=== PATIENT | male | born 1940 | race Caucasian/White ===

== ENCOUNTER 2019-02-22 11:14 | Observation (INO) | payer MEDICARE, BC ==
[2019-02-22] MEDS ORDERED: Dextrose 50% Abboject 50 ML SYRINGE SLOW IVP PRN (18:55)
[2019-02-22] MEDS ORDERED: Loratadine 10 MG TAB PO PRN (18:55)
[2019-02-22] MEDS ORDERED: Phytonadione 10 MG/ML AMP PO SCH (18:55)
[2019-02-22] MEDS ORDERED: Docusate 100 MG CAP PO PRN (18:55)
[2019-02-22] MEDS ORDERED: HumaLOG 300 UNITS/3 ML VIAL SC PRN ×2 (18:55)
[2019-02-22] MEDS ORDERED: Ondansetron PF 4 MG/2 ML Vial IVP PRN (18:55)
[2019-02-22] MEDS ORDERED: Acetaminophen 500 MG TAB PO PRN (18:55)
[2019-02-22] MEDS ORDERED: Fluticasone Propionate Nasal Spray 16 gm Bottle NASAL PRN (18:55)
[2019-02-22] MEDS ORDERED: Dextrose 5% in Water 1,000 ML IV PRN (18:55)
[2019-02-22] MEDS ORDERED: Ondansetron ODT 4 MG TAB SL PRN (18:55)
--- NOTE | 2019-02-22 19:42 | RAD ---
PORTABLE AP CHEST X-RAY 02/22/19 HISTORY: Heart failure. COMPARISON: 11/19/18. FINDINGS: A triple lead left subclavian AICD device remains in place. The cardiac silhouette remains enlarged. There is evidence of pleural and parenchymal changes right lung base, likely related to small right and tiny left pleural effusions with associated atelectasis. There are linear densities present at th e right lung also probably present on the prior study which may be related to mild scarring. Pulmonar y vasculature is at the upper limits of normal but not significantly changed from prior exam. IMPRESSION: 1. Cardiomegaly without overt CHF. 2. Small bilateral pleural effusion and associated atelectasis. Probable additional mild scarrin g at the right lung base. POS: PRADEEPC
[2019-02-22] MEDS ORDERED: Cephalexin 250 MG CAP PO SCH (21:00)
[2019-02-22] MEDS: Alogliptin 6.25 MG TAB PO SCH (21:54)
[2019-02-22] MEDS: Metolazone 5 MG TAB PO SCH (21:55)
[2019-02-22] MEDS: Famotidine 20 MG TAB PO SCH (21:55)
[2019-02-22] MEDS: Carvedilol 6.25 MG TAB PO SCH (21:55)
--- NOTE | 2019-02-22 22:42 | HP ---
PRIMARY CARE PROVIDER: Alejo Turcios MD. PRIMARY REHAB TECH: Ryanne Rodriguez MD. CHIEF COMPLAINT: Increased abdominal girth. HISTORY OF PRESENT ILLNESS: This is a 78-year-old male who presented to [facility] after referral from Dr. Rodriguez's office for increasing abdominal girth and ascites. The patient with a long-standing history of cardiomyopathy and congestive heart failure with history of prior ascites requiring paracentesis and removal of approximately 6 L of transudative fluid in [place], [place], October 2018. The patient states his weight had increased to 240 pounds, decreasing to 194 pounds prior to discharge in October 2018. The patient has been followed locally after relocating to the [facility] and following up with Dr. Rodriguez at the [facility]. The patient also has been followed at the [facility] and is monitored closely due to chronic Coumadin use as well as congestive heart failure and severe cardiomyopathy. The patient is unsure of increased weight gain, but states he has some swelling of his lower extremities, but mainly noticeable with increasing abdominal girth. The patient has been compliant with his medication regimen and had an increase to his diuretic regimen recommended by the CHF clinic. The patient states this does not appear to be successful in managing his abdominal fluid at which point he was referred to the hospitalist service for consideration of paracentesis. The patient denied any specific increased shortness of breath, but overall general fatigue. No documented fever, chills, exposure history, or recent travel. PAST MEDICAL HISTORY: 1. Idiopathic-dilated cardiomyopathy status post AICD placement. 2. Chronic systolic congestive heart failure. 3. Chronic atrial fibrillation. 4. Chronic anticoagulation with Coumadin x10 years. 5. Abdominal ascites status post paracentesis. 6. Chronic kidney disease stage 3. 7. Diabetes mellitus type 2. PAST SURGICAL HISTORY: 1. Status post cardiac radiofrequency ablation. 2. Status post external cardiac defibrillator. 3. Status post AICD placement. CURRENT MEDICATIONS: 1. Carvedilol 6.25 mg p.o. b.i.d. 2. Keflex 500 mg p.o. t.i.d. 3. Digoxin 125 mcg p.o. on Tuesday, Tuesday, and Tuesday. 4. Docusate sodium 100 mg p.o. daily p.r.n. 5. Ferrous sulfate 325 mg p.o. daily. 6. Proscar 5 mg p.o. daily. 7. Flonase 2 sprays in each naris daily. 8. Tradjenta 5 mg p.o. at bedtime. 9. Claritin 10 mg p.o. daily. 10. Magnesium oxide 200 mg p.o. daily. 11. Zaroxolyn 5 mg p.o. b.i.d. 12. Multivitamin 1 tablet p.o. daily. 13. Potassium chloride 40 mEq p.o. b.i.d. 14. Spironolactone 25 mg p.o. b.i.d. 15. Torsemide 40 mg p.o. b.i.d.. 16. Coumadin 5 mg on Tuesday, Tuesday, and Tuesday; and 7.5 mg on Tuesday, , Tuesday, and Tuesday. ALLERGIES: NO KNOWN DRUG ALLERGIES. FAMILY HISTORY: No inheritable disease per the patient report. SOCIAL HISTORY: The patient is , accompanied by his in the hospital. Retired, relocating to the [facility] after living in [place] for 30+ years. No current alcohol, tobacco, or illicit drug use. REVIEW OF SYSTEMS: CONSTITUTIONAL: Negative for weight loss or gain, ability to conduct usual activities. SKIN: Negative for rash, itching. EYES: Negative for double vision, pain. ENT/MOUTH: Negative for nose bleeding, neck stiffness, pain, tenderness. CARDIOVASCULAR: Negative for palpitations, dyspnea on exertion, orthopnea. RESPIRATORY: Negative for shortness of breath, wheezing, cough, hemoptysis, fever or night sweats. GASTROINTESTINAL: Negative for poor appetite, abdominal pain, heartburn, nausea, vomiting, constipation, or diarrhea. GENITOURINARY: Negative for urgency, frequency, dysuria, nocturia. MUSCULOSKELETAL: Negative for pain, swelling. NEUROLOGIC/PSYCHIATRIC: Negative for anxiety, depression. ALLERGY/IMMUNOLOGIC: Negative for skin rash, bleeding tendency. Otherwise negative except as stated per HPI. PHYSICAL EXAMINATION: VITAL SIGNS: Currently, blood pressure 96/56, pulse 71, respiratory rate 18, temperature 96.9 degrees Fahrenheit, O2 saturation 97% on room air. GENERAL APPEARANCE: This is a 78-year-old male, alert and oriented x3, pleasant, conversant, in no acute distress. HEENT: Pupils are equal, round, reactive to light and accommodation. Extraocular muscles are intact. No scleral icterus. No conjunctival injection. Nares are patent. OP is clear. Teeth in fair repair. NECK: Supple. No cervical adenopathy. No thyromegaly. No carotid bruits. No JVD appreciated. Cervical spine with full active and passive range of motion. No meningeal signs noted. CHEST: Lungs are clear to auscultation bilaterally with mild decrease in the bases. CARDIOVASCULAR: S1, S2 without noted murmur, rub, or gallop. ABDOMEN: Protuberant with abdominal fluid wave noted. Positive ascites. No palpable mass or tenderness noted. Bowel sounds are positive in all 4 quadrants. EXTREMITIES: Warm and dry with fair turgor. Mild edema to the proximal shins bilaterally. CARMEN hose compression stockings in place. Pulses are palpable distally at the dorsalis pedis, posterior tibial, and popliteal arteries bilaterally. Capillary refill less than 2 seconds. NEUROLOGIC: Cranial nerves 2 through 12 are grossly intact. No focal or lateralizing signs appreciated. Telemetry monitoring shows a ventricular paced rhythm in the 70s. LABORATORY DATA: Sodium 133, potassium 4.3, chloride 90, CO2 of 31, BUN 102, creatinine 2.18, estimated GFR of 30, glucose 94, calcium 9.9, total bilirubin level 1.9, AST 20, ALT of 13, alkaline phosphatase 152. BNP 2385; previously 3130, 11/19/2018. Albumin 4.0, PT 33, INR 3.3. CBC showed a white blood cell count of 5.7, hemoglobin 12, hematocrit 37, platelet count 136 with 71% neutrophils. ASSESSMENT AND PLAN: 1. Abdominal ascites. The patient will be admitted to the telemetry unit. Suspect secondary to chronic systolic congestive heart failure. We will obtain abdominal ultrasound with ultrasound-guided paracentesis. Lasix 20 mg IV b.i.d. Fluid restriction to 1.5 L per 24 hours. 2. Cardiomyopathy. Secondary to idiopathic-dilated cardiomyopathy. We will continue general supportive management. Continue digoxin 125 mcg Tuesday, Tuesday, and Tuesday. 3. Chronic anticoagulation with Coumadin. Hold current Coumadin. Vitamin K 5 mg p.o. x1 now. Continue holding anticoagulation in preparation for paracentesis. Repeat PT/INR in the a.m. 4. Chronic kidney disease stage 3. Avoid nephrotoxic agents and limit contrast exposure. Repeat creatinine in the a.m. 5. Chronic systolic congestive heart failure. No specific evidence of acute exacerbation. Resume home regimen including digoxin and Coreg. Check 2D transthoracic echocardiogram in the a.m. 6. Prophylaxis. CARMEN hose compression stockings. Pepcid 20 mg p.o. b.i.d. 7. Code status is full. Surrogate medical decision maker is the patient's spouse. Job ID: [id number]
[2019-02-23 04:51] LABS: INR-International Normal Ratio 2.4; Prothrombin Time 26.2 SEC (12.0-14.7)
[2019-02-23 05:13] LABS: ALT (SGPT) 11 U/L (8-55); AST (SGOT) 17 U/L (5-34); Albumin 3.8 g/dL (3.4-4.8); Alkaline Phosphatase 134 U/L (40-150); Anion Gap 18 mmol/L (10-20); BUN (Urea Nitrogen) 97 mg/dL (8.4-25.7); Bilirubin, Total 2.3 mg/dL (0.2-1.2); Calc. Creatinine Clearance 38 mL/min (70-130); Carbon Dioxide 28 mmol/L (23-31); Chloride 90 mmol/L (98-107); Estimated GFR-MDRD 32; Globulin 3.3 g/dL (2.4-3.5); Glucose 94 mg/dL (83-110); Potassium 3.7 mmol/L (3.5-5.1); Protein, Total 7.1 g/dL (5.8-8.1); Sodium 132 mmol/L (136-145)
[2019-02-23 05:18] LABS: Band 5 % (5-11); Eosinophils 1 % (0-10); Hemoglobin 12.2 g/dL (14.0-18.0); Lymphocytes 20 % (21-51); MDiff Complete? YES; Mean Corpuscular HGB CONC 33.9 g/dL (32.0-36.0); Mean Corpuscular Hemoglobin 31.8 pg (27.0-31.0); Mean Corpuscular Volume 93.8 fL (78.0-98.0); Mean Platelet Volume 9.1 fL (7.4-10.4); Monocytes 7 % (0-10); Neutrophil 66 % (42-75); Platelet Count 135 thou/uL (130-400); Red Blood Cell (RBC) Count 3.84 mill/uL (4.70-6.10)
[2019-02-23] MEDS ORDERED: Carvedilol 6.25 MG TAB PO SCH (08:00)
[2019-02-23] MEDS ORDERED: Potassium Chloride 20 MEQ TAB PO SCH (08:00)
--- NOTE | 2019-02-23 08:42 | ULT ---
Sonogram abdomen limited HISTORY: Abdominal pain. Ascites. FINDINGS: Exam was originally scheduled as a sonographic guided paracentesis. Sonographic survey show s small amount of free fluid. Estimated at 1 L. The patient's INR is elevated due to therapeutic Coumadin. Given the small amount of fluid and that t emporarily holding the Coumadin would be required for the procedure, it would probably be better to not perform the paracentesis, as it would be of limited therapeutic value. The findings and plan were with Dr. Cullen at the time of the exam.
[2019-02-23] MEDS ORDERED: Digoxin 0.125 MG TAB PO SCH (09:00)
[2019-02-23] MEDS: Metolazone 5 MG TAB PO SCH ×2 (09:02→20:48)
[2019-02-23] MEDS: Magnesium Oxide 400 MG TAB PO SCH (09:02)
[2019-02-23] MEDS: Carvedilol 6.25 MG TAB PO SCH ×2 (09:03→21:04)
[2019-02-23] MEDS: Spironolactone 25 MG TAB PO SCH ×2 (09:03→16:19)
[2019-02-23] MEDS: Multivitamin W/ Minerals 1 TAB PO SCH (09:03)
[2019-02-23] MEDS: Ferrous Sulfate 325 MG TAB PO SCH (09:03)
[2019-02-23] MEDS: Potassium Chloride 20 MEQ TAB PO SCH ×2 (09:03→16:20)
[2019-02-23] MEDS: Finasteride 5 MG TAB PO SCH (09:03)
[2019-02-23 09:30] LABS: Iron 83 ug/dL (65-175); Iron Binding Capacity, Total 359 mcg/dL (261-462)
--- NOTE | 2019-02-23 11:20 | PRG ---
DATE OF SERVICE: 02/23/2019 SUBJECTIVE: Mr. Monroe is breathing okay. No complaints. OBJECTIVE: VITAL SIGNS: His blood pressure is somewhat better 90/54, pulse 70. LUNGS: Clear. CARDIAC: Mitral regurgitation murmur is soft. ABDOMEN: Soft, nontender. EXTREMITIES: Moderate edema. PERTINENT LABORATORY DATA: Creatinine is 2.05. The INR is 2.4. ASSESSMENT: 1. Idiopathic cardiomyopathy, appears to be nearing the end stages. 2. Renal failure. 3. Hepatic congestion. 4. Only has a small amount of ascites. PLAN: 1. Echocardiogram is pending, probably not a lot more can be done to optimize the situation. 2. Stop digoxin. 3. At some point, I will try to get hold of his primary emu farm worker in [place], Dr. Johnson. Unfortunately, the family seems to think that his prognosis is better than what I believed to be. Job ID: [id number]
--- NOTE | 2019-02-23 12:43 | PDOC.HOSPP ---
- Subjective Subjective: f/u for Idiopathic CM and small amount of ascites. No indication per abd sono to perform paracentesis. No new complaints currently. - Objective Vital Signs & Weight: Vital Signs (12 hours) Temp Pulse Pulse Pulse Resp BP BP 02/23/19 11:11 72 86 90/59 L 91/52 L 02/23/19 08:00 97.5 F L 71 18 02/23/19 04:00 98.2 F 72 15 BP BP Pulse Ox Pulse Ox Pulse Ox 02/23/19 11:11 97 96 02/23/19 08:00 99/59 L 95 02/23/19 04:00 91/54 L 94 L Weight Weight 193 lb 12.8 oz I&O: 02/22/19 02/23/19 02/24/19 06:59 06:59 06:59 Intake Total 1111 Output Total 1999 Balance -889 Result Diagrams: 02/23/19 04:06 02/23/19 04:06 Additional Labs: Accuchecks 02/23/19 02/23/19 02/22/19 11:15 05:32 20:41 POC Glucose 99 103 140 H 02/22/19 16:40 POC Glucose 94 Laboratory Tests 02/21/19 02/21/19 02/23/19 10:40 10:40 04:06 INR 3.3 2.4 BUN 102 H Creatinine 2.18 H Radiology Reviewed by me: Yes (ABD sono - small amount of ascites) EKG Reviewed by me: Yes (Tele - V-pacing, PVC's) ROS - Review of Systems All systems: All other ROS were reviewed and found negative. - Medication Medications: Active Medications Generic Name Dose Route Start Last Admin Trade Name Freq PRN Reason Stop Dose Admin Acetaminophen 1,000 mg 02/22/19 18:55 02/23/19 09:06 Tylenol PO 1,000 mg Q6H PRN Administration Mild Pain (1-3) Alogliptin Benzoate 12.5 mg 02/22/19 21:00 02/22/19 21:54 Alogliptin PO 12.5 mg HS ROSA Administration Carvedilol 6.25 mg 02/22/19 21:00 02/23/19 09:03 Coreg PO 6.25 mg BID ROSA Administration Famotidine 20 mg 02/22/19 21:00 02/22/19 21:55 Pepcid PO 20 mg Q24HR ROSA Administration Ferrous Sulfate 325 mg 02/23/19 08:00 02/23/19 09:03 Feosol PO 325 mg QAM-WM ROSA Administration Finasteride 5 mg 02/23/19 09:00 02/23/19 09:03 Proscar PO 5 mg DAILY ROSA Administration Iron/Minerals/Multivitamins 1 tab 02/23/19 09:00 02/23/19 09:03 Theragran M PO 1 tab DAILY ROSA Administration Magnesium Oxide 200 mg 02/23/19 09:00 02/23/19 09:02 Magnesium Oxide PO 200 mg DAILY ROSA Administration Metolazone 5 mg 02/22/19 21:00 02/23/19 09:02 Zaroxolyn PO 5 mg BID ROSA Administration Potassium Chloride 20 meq 02/23/19 08:00 02/23/19 09:03 K-Dur PO 20 meq BID-WM ROSA Administration Sodium Chloride 10 ml 02/23/19 09:00 02/23/19 09:04 Flush - Normal Saline IVF 10 ml Q12HR ROSA Administration Spironolactone 25 mg 02/23/19 08:00 02/23/19 09:03 Aldactone PO 25 mg BID-WM ROSA Administration - Exam NAD, awake alert Eye: PERRL, anicteric sclera ENT: normocephalic atraumatic, no oropharyngeal lesions Neck: supple, symmetric, no JVD, no Thyromegaly Heart: RRR, no murmur, no gallops, no rubs Respiratory: CTAB, no wheezes, no rales, no ronchi (diminished in R base) Gastrointestinal: soft, non-tender, normal bowel sounds (mild fluid wave) Extremities: no cyanosis, no clubbing, 1+ LE edema Skin: normal turgor, no rashes Neurological: CN's grossly intact, no focal deficits Psychiatric: normal behavior, A&O x 3 Hosp A/P (1) Ascites Code(s): R18.8 - OTHER ASCITES Status: Chronic Qualifiers: Ascites type: other type Qualified Code(s): R18.8 - Other ascites Plan: Secondary to heart failure, chronic condition, small volume of ascites noted on Abd sono, no indication for paracentesis (2) Idiopathic cardiomyopathy Code(s): I42.8 - OTHER CARDIOMYOPATHIES Status: Chronic Plan: 2D echo pending, Digoxin d/c'd, continue Spironolactone, Zaroxolyn (3) Chronic anticoagulation Code(s): Z79.01 - DRUM LOADER AND UNLOADER (CURRENT) USE OF ANTICOAGULANTS Status: Chronic Plan: Resume Coumadin, serial PT/INR (4) Acute kidney injury superimposed on CKD Code(s): N17.9 - ACUTE KIDNEY FAILURE, UNSPECIFIED; N18.9 - CHRONIC KIDNEY DISEASE, UNSPECIFIED Status: Acute Plan: Avoid nephrotoxic meds and limit contrast exposure, serial creatinine (5) Chronic systolic CHF (congestive heart failure), NYHA class 3 Code(s): I50.22 - CHRONIC SYSTOLIC (CONGESTIVE) HEART FAILURE Status: Chronic Plan: No current evidence of decompensation, continue med mgmt, 2D echo pending - Plan plan discussed w/ family, social media assistant, out of bed/ambulate Stable currently Resume Coumadin today 2D echo pending Continue Coreg AM lab: BMP Likely home in 24h
[2019-02-23] MEDS ORDERED: Warfarin Sodium 5 MG TAB PO SCH ×2 (12:45→17:00)
[2019-02-23 13:50] VITALS: BMI 22.9
[2019-02-23] MEDS: Alogliptin 6.25 MG TAB PO SCH (20:48)
[2019-02-23] MEDS: Famotidine 20 MG TAB PO SCH (21:04)
[2019-02-24 05:32] LABS: INR-International Normal Ratio 1.9; Prothrombin Time 21.4 SEC (12.0-14.7)
[2019-02-24 05:57] LABS: Anion Gap 15 mmol/L (10-20); BUN (Urea Nitrogen) 86 mg/dL (8.4-25.7); Calc. Creatinine Clearance 45 mL/min (70-130); Carbon Dioxide 29 mmol/L (23-31); Chloride 94 mmol/L (98-107); Estimated GFR-MDRD 39; Glucose 111 mg/dL (83-110); Potassium 3.7 mmol/L (3.5-5.1); Sodium 134 mmol/L (136-145)
[2019-02-24] MEDS: Ferrous Sulfate 325 MG TAB PO SCH (09:30)
[2019-02-24] MEDS: Multivitamin W/ Minerals 1 TAB PO SCH (09:30)
[2019-02-24] MEDS: Spironolactone 25 MG TAB PO SCH (09:31)
[2019-02-24] MEDS: Metolazone 5 MG TAB PO SCH (09:31)
[2019-02-24] MEDS: Finasteride 5 MG TAB PO SCH (09:31)
[2019-02-24] MEDS: Potassium Chloride 20 MEQ TAB PO SCH (09:31)
[2019-02-24] MEDS: Carvedilol 6.25 MG TAB PO SCH (09:31)
[2019-02-24] MEDS: Magnesium Oxide 400 MG TAB PO SCH (09:31)
[2019-02-24 10:24] LABS: Hemoglobin 12.8 g/dL (14.0-18.0); Platelet Count 140 thou/uL (130-400)
--- NOTE | 2019-02-24 12:52 | PRG ---
DATE OF SERVICE: 02/24/2019 SUBJECTIVE: Mr. Monroe is breathing somewhat better. He is not having chest pain. He is not short of breath now. OBJECTIVE: VITAL SIGNS: Blood pressure is still low at 91/58 and pulse 70. LUNGS: Clear. CARDIAC: There is a 3/6 holosystolic murmur with mitral regurgitation. ABDOMEN: Soft and nontender. EXTREMITIES: There is moderate edema. Echocardiogram showed ejection fraction, 20% to 25%, there is severe mitral regurgitation. INR is 1.9. I had a long discussion with the patient and his about the poor long-term prognosis. I did speak with the patient's primary internet marketing intern, Dr. Johnson. He indicated that the patient could be potentially considered for transplantation or left ventricular assist device. The patient wishes to go back and speak with Dr. Johnson about these potential options. Another option could potentially be MitraClip. The patient does have severely depressed left ventricular function, would not be a surgical candidate. The patient will be released home. He mentioned that he wishes to speak further with Dr. Johnson. We have discharged him on the same medicines as on admission except we did take him off digoxin as the heart rate seems well controlled on the carvedilol alone and he is having some nonsustained ventricular tachycardia and reduced carvedilol to 6.25 twice a day in view of his hypotension, long-term prognosis, without further intervention is extremely poor. Job ID: [id number]
[2019-02-24 13:05] VITALS: BP 101/58; TEMP 97.2
[2019-02-24] MEDS ORDERED: Torsemide 20 MG TAB PO SCH (14:00)
[2019-02-24] MEDS ORDERED: Warfarin Sodium 7.5 MG TAB PO SCH (17:00)
--- NOTE | 2019-02-24 21:53 | DIS ---
DATE OF ADMISSION: 02/22/2019 DATE OF DISCHARGE: 02/24/2019 DISCHARGE DIAGNOSES: 1. Idiopathic cardiomyopathy with ejection fraction of 20% to 25%. 2. Ascites, small volume, stable. 3. Chronic anticoagulation with Coumadin. 4. Acute kidney injury on chronic kidney disease stage 3. 5. Chronic systolic congestive heart failure, [place] Heart Association class III. CONSULTATIONS: Dr. Rodriguez with Cardiology Service. PERTINENT LABORATORY AND X-RAY FINDINGS: Sodium ranged between 132 to 134. Creatinine ranged between 1.72 to 2.18. Estimated GFR ranged between 30 to 39. Serum iron level 83, TIBC 359, ferritin 273, total bilirubin 2.3, AST 17, ALT 11, alkaline phosphatase 134. CBC showed a hemoglobin ranged between 12.2 to 12.8. INR ranged between 1.9 to 2.4. Portable chest x-ray dated 02/22/2019, showed cardiomegaly without overt congestive heart failure. Small bilateral pleural effusions with associated atelectasis. AICD device in the left subclavian distribution. Abdominal ultrasound dated 02/23/2019, showed small amount of ascites. 2D transthoracic echocardiogram dated 02/24/2019, showed ejection fraction of 20% to 25%. Severe left atrial enlargement. Severe mitral valve regurgitation. Moderate to severe tricuspid valve regurgitation. Moderately elevated pulmonary artery pressure. HOSPITAL COURSE: The patient was observed on the telemetry unit after initially presenting with increasing abdominal girth in the context of known idiopathic cardiomyopathy and chronic systolic congestive heart failure. The patient was initially evaluated for questionable increasing ascites with consideration for paracentesis. The patient underwent abdominal ultrasound showing small volume of ascites without recommendation for paracentesis. The patient continued to receive diuretic therapy during the hospital course, however, this was modified due to mild acute kidney injury in the context of chronic kidney disease stage 3. The patient's overall renal function had improved with adjustment to his chronic diuretic regimen. The patient was also evaluated by the Cardiology Service due to severe cardiomyopathy and chronic systolic heart failure. The patient was discontinued on digoxin and continued on Coreg 6.25 mg twice daily. The patient underwent 2D transthoracic echocardiogram showing depressed ejection fraction and severe mitral valve regurgitation. Current recommendations are to follow up with his primary hyperbaric tech in the [place] area to discuss potential treatment options regarding his mitral valve disease. Discussions were also regarding potential left ventricular assist device and cardiac transplantation. Overall, the patient remained clinically stable during the hospital course, tolerating regular oral intake with stable vital signs. I have examined the patient at the time of discharge and discussed followup instructions. The patient verbalized understanding and agreement, ready for discharge on 02/24/2019. DISCHARGE MEDICATIONS: 1. Carvedilol 6.25 mg p.o. b.i.d. 2. Benadryl 50 mg p.o. q.4 to 6 hours p.r.n. 3. Docusate sodium 100 mg p.o. daily p.r.n. 4. Ferrous sulfate 325 mg p.o. daily. 5. Proscar 5 mg p.o. daily. 6. Flonase 2 sprays in each naris daily p.r.n. 7. Tradjenta 5 mg p.o. at bedtime. 8. Claritin 10 mg p.o. daily. 9. Magnesium oxide 200 mg p.o. daily. 10. Multivitamin 1 tablet p.o. daily. 11. Potassium chloride 40 mEq p.o. b.i.d. 12. Spironolactone 25 mg p.o. b.i.d. 13. Coumadin 5 mg on Tuesday, Tuesday, Tuesday, and 7.5 mg on Tuesday, , Tuesday, and Tuesday. 14. Torsemide 20 mg p.o. b.i.d. FOLLOWUP: The patient may follow up with his primary care provider, Dr. Alejo Turcios on 03/02/2019 at 10:30 am. The patient will follow up with Dr. Ryanne Rodriguez in 2 to 3 weeks after discharge. CONDITION ON DISCHARGE: Stable. ACTIVITY: Ad-sarahy. DIET: Heart healthy and ADA. CODE STATUS: Full. DISPOSITION: Discharged home on 02/24/2019. Job ID: [id number]
== END 2019-02-24 14:23 | disposition home or self-care (01) ==
LOC: INTOOBSV 13:03 → 2NO 13:03 → OBSVTOIN 13:03
PROVIDERS: ADMIT Family Medicine; ATTEND Family Medicine
DX: E11.22 Type 2 diabetes mellitus with diabetic chronic kidney disease (principal); N18.3 Chronic kidney disease, stage 3 (moderate); I50.42 Chronic combined systolic (congestive) and diastolic (congestive) heart failure; N17.9 Acute kidney failure, unspecified; R18.8 Other ascites; I42.0 Dilated cardiomyopathy; I48.2 Chronic atrial fibrillation; I08.1 Rheumatic disorders of both mitral and tricuspid valves; Z79.01 Long term (current) use of anticoagulants; Z79.899 Other long term (current) drug therapy; Z95.810 Presence of automatic (implantable) cardiac defibrillator; Z99.2 Dependence on renal dialysis
CPT/HCPCS: 71045; 76705; 80048; 80053 ×2; 82728; 82962 ×3; 83540; 83550; 85007; 85014; 85018; 85025; 85027; 85049; 85610 ×3; 93306; 93798 ×2; G0378 ×2; 36415; 36416; J3430